=== PATIENT | male | born 1995 | race Hispanic/Latino ===

== ENCOUNTER 2017-08-22 17:22 | Emergency (ER) | payer OTHER ==
[~2017-08-22] VITALS: Ht 177.8 cm; Wt 76.4 kg
--- NOTE | 2017-08-22 18:17 | REP ---
REASON FOR EXAM: Pain after trauma. COMPARISON: None. FINDINGS: No acute fracture or destructive osseous lesion. The mortise is intact. Signed by Felice Figueredo DO 08/22/2017 07:18 P
[2017-08-22 19:18] VITALS: BP 133/86
== END 2017-08-22 19:30 | disposition home or self-care (01) ==
LOC: M ED 17:22
DX: S93.402A Sprain of unspecified ligament of left ankle, initial encounter (principal); X50.9XXA Other and unspecified overexertion or strenuous movements or postures, initial encounter; Y92.89 Other specified places as the place of occurrence of the external cause; Y93.89 Activity, other specified; Y99.8 Other external cause status; F17.210 Nicotine dependence, cigarettes, uncomplicated